=== PATIENT | male | born 1965 | race Caucasian/White ===

== ENCOUNTER 2021-11-09 17:19 | Emergency (ER) | payer OTHER, SELFPAY ==
[2021-11-09 17:27] VITALS: BP 143/106; PULSE 63; RESP 16; TEMP 36.6; O2SAT 99
--- NOTE | 2021-11-09 17:32 | ED.SKABFB ---
HPI - Skin/Abscess/Foreign Bdy General Chief complaint: Skin/Abscess/Foreign Body Stated complaint: rash Time Seen by Provider: 11/09/21 17:32 Source: patient Mode of arrival: ambulatory Limitations: no limitations History of Present Illness HPI narrative: 56-year-old male presents with rash to right upper arm, left lower leg after doing yard work 4 to 5 days ago. Reports he first noticed rash to right upper arm and later to left lower leg. Initially thought that he may have spider bite to left lower leg. States that rash has been itchy. Has been scratching at it. Applying triple antibiotic ointment. Not using any steroid cream. All systems reviewed and negative except as noted above. Related Data Allergies Allergy/AdvReac Type Severity Reaction Status Date / Time No Known Allergies Allergy Verified 11/09/21 17:22 Review of Systems Review of Systems: CONSTITUTIONAL: Denies fever, chills, or sweats. EYES: Denies visual changes, redness, or discharge. ENT: Denies rhinorrhea, congestion, sore throat, or otalgia. CARDIOVASCULAR: Denies chest pain, palpitations, or edema. RESPIRATORY: Denies cough or dyspnea. GASTROINTESTINAL: Denies abdominal pain, nausea, vomiting, or diarrhea. GENITOURINARY: Denies dysuria or hematuria. SKIN: Reports rash and itching. MUSCULOSKELETAL: Denies back pain, joint pain, or myalgia. NEUROLOGIC: Denies headache, numbness, or weakness. PSYCHIATRIC: Denies anxiety or depression. All other systems reviewed are negative, except as documented in HPI. PMFSH Comments At time of signature, agree with nursing past medical, surgical, social and family history. There is no relevant family history pertinent to the presenting complaint. Exam Narrative: GENERAL: This is a well-nourished, well-developed patient, in no apparent distress. HEAD: normocephalic, atraumatic. EYES: PERRL. Sclera clear/white. Vision is grossly intact. EARS: External ears normal NOSE: External nose normal NECK: Neck supple, non-tender without lymphadenopathy, masses or thyromegaly. CARDIOVASCULAR: Regular rate and rhythm without murmurs, gallops, or rubs. RESPIRATORY: Clear to auscultation. Breath sounds equal bilaterally. No wheezes, rales, or rhonchi. SKIN: warm, Dry, intact, good texture and turgor. Erythematous, vesicular rash to right upper arm, left lower leg. Surrounding area to rash of left lower leg is erythematous, warm, swollen concerning for cellulitis. NEURO: awake, alert, and oriented to person, place and time. There were no obvious focal neurologic abnormalities. EXTREMITIES: Normal range of motion to all extremities. Course Course Level of Care: Express Care Visit Vital Signs Vital signs: Vital Signs Temperature 36.6 C 11/09/21 17:27 Pulse Rate 63 11/09/21 17:27 Respiratory Rate 16 11/09/21 17:27 Blood Pressure 143/106 H 11/09/21 17:27 Pulse Oximetry 99 11/09/21 17:27 Oxygen Delivery Room Air 11/09/21 17:27 Temperature 36.6 C 11/09/21 17:27 Pulse Rate 63 11/09/21 17:27 Respiratory Rate 16 11/09/21 17:27 Blood Pressure 143/106 H 11/09/21 17:27 Pulse Oximetry 99 11/09/21 17:27 Oxygen Delivery Room Air 11/09/21 17:27 Reviewed MDM - Skin/Abscess/Foreign Bdy MDM Narrative Medical decision making narrative: Patient is aware of diagnosis, understands and agrees to treatment plan. Anticipatory guidance given. Patient agrees to follow-up as directed and is aware of reasons to seek care at the emergency department. Portions of this record may have been created with voice recognition software Discharge Plan Discharge Clinical Impression: Allergic contact dermatitis due to plant, Cellulitis of left lower leg Patient Disposition: Home, Self-Care Condition: Stable Instructions: Antibiotic Form, Cellulitis (ED), Poison Ember (ED) Additional Instructions: Take medications as prescribed. Take ibuprofen or Tylenol if you are experiencing any pain. Follow
[2021-11-09 17:50] VITALS: BP 115/84
[2021-11-09 17:56] VITALS: BP 115/94
== END 2021-11-09 17:50 | disposition home or self-care (01) ==
PROVIDERS: Emergency Provider Nurse Practitioner Family
DX: L23.7 Allergic contact dermatitis due to plants, except food (principal); L03.116 Cellulitis of left lower limb
CPT/HCPCS: 99213; G0463

== ENCOUNTER 2023-03-21 09:05 | Outpatient (CLI) | payer OTHER, SELFPAY ==
--- NOTE | ~2023-03-21 | CT_ITS ---
CT of the Abdomen and Pelvis: Indication: Microscopic hematuria Technique: 2.5 mm axial scans were obtained through the abdomen and pelvis prior to and following in travenous administration of 130 cc of Omnipaque 350. Dose reduction technique was used on this scan b y utilizing automated exposure control and iterative reconstruction technique. The dose-length produc t (DLP) was 1440.65 mGy-cm. Findings: Scans through the lung bases are unremarkable. The liver, spleen, pancreas, gallbladder, adrenals and kidneys are within normal limits. No evidence of aortic aneurysm. No lymphadenopathy. No bowel obstruction or bowel wall thickening. There is no evidence to suggest acute appendicitis. Images through the pelvis were performed. Urinary bladder unremarkable. Prostate gland is mildly enla rged. Small fat-containing left inguinal hernia present. Impression: No etiology for hematuria identified. Small fat-containing left inguinal hernia. Reviewed, dictated and finalized at [facility]. Impression: No etiology for hematuria identified. Small fat-containing left inguinal hernia.
[2023-03-21 09:27] LABS: Estimated Glomerular Filt Rate > 60
== END 2023-03-21 09:06 ==
LOC: MICIMG 09:06
PROVIDERS: PCP Urology; Visit Provider Urology
DX: R31.29 Other microscopic hematuria (principal); K40.90 Unilateral inguinal hernia, without obstruction or gangrene, not specified as recurrent
CPT/HCPCS: 74178; Q9967

== ENCOUNTER 2023-11-13 14:51 | Outpatient (CLI) | payer OTHER, SELFPAY | END 2023-11-13 14:52 | disposition home or self-care (01) | LOC: ANHSURGERY 14:56 | PROVIDERS: Visit Provider Surgery | DX: Z01.818 Encounter for other preprocedural examination (principal); K40.90 Unilateral inguinal hernia, without obstruction or gangrene, not specified as recurrent | CPT/HCPCS: 36415; 86850; 86900; 86901 ==

== ENCOUNTER 2023-11-22 00:32 | Day surgery (SDC) | payer OTHER, SELFPAY ==
[2023-11-07 08:41] VITALS: BMI 26.5
--- NOTE | 2023-11-07 08:50 | PC.NURSE ---
Report to the Outpatient Waiting Room, entrance under the green pavilion located off [facility], at time _1000_ on date _[id number]_. Planned Procedure Time: _1200_. Time changes happen often and if your time is changed the preop area will call you the afternoon before. - You and your visitor will be asked to self-screen and do not enter if you have any COVID symptoms. - A mask is optional within the hospital at this time. Patients may have clear liquids (water, carbonated beverages, clear teas, apple juice) until 3 hours prior to surgery with a maximum of 20 ounces. - No food from midnight until time of surgery Take the following medications with a SIP of water the morning of surgery: ____None DO NOT STOP ANY OF YOUR OTHER PRESCRIPTION MEDICATIONS PRIOR TO SURGERY ?EXCEPT THE FOLLOWING Medications to discontinue per physician None Date to take last dose Please no make-up, nail bahamian, hairspray, perfume, deodorant, or body powder the day of surgery. No jewelry (including any body piercings) or valuables the day of surgery, leave them at home. Please take a shower or bath the night before, or the morning of, surgery with an antibacterial soap. Wear comfortable, loose fitting clothing. - Jewelry must be removed prior to entering the operating room. Rings and piercings that are not removed may be cut off. - The hospital will not accept responsibility for valuables. - Please leave all valuables, including medications, at home the day of surgery. If you are going home after surgery, a licensed short haul driver must drive you home. - NO public transportation without another adult if you receive anesthesia. - We recommend that an adult stay with you for 24 hours following discharge. - We also recommend that you do not drive, make important decision, drink alcoholic beverages, or take any drugs that were not prescribed by your health care provider for at least 24 hours after your discharge time. Follow any additional instructions given to you from your surgeon. If you or anyone in your household have experienced Covid symptoms in the past week, please notify your surgeon or the nurse liaison at the phone number below for possible testing. Telephone instructions given to _Aravind__and asked if any additional questions and then verbalized understanding. Patient advised to call surgeon office or pre surgery nurse liaison [phone] if any additional questions.
--- NOTE | 2023-11-21 13:17 | PM.SD2 ---
Same Day Admit/Disch: HPI History of Present Illness Chief complaint: Lt Ing Hernia Narrative: Shun Hayes is a 58 year old male who was noted by his urologist last fall to have a possible left inguinal hernia. He had a CT scan which showed a small fat containing left inguinal hernia. The bulge increased and I saw him last March. He had a reducible left inguinal hernia. He was however, not ready to proceed with surgery at that time. He was seen again in September and the left inguinal hernia is slightly larger but still reducible. After discussion, he would like to proceed with robotic laparoscopic repair with mesh. He is taken to surgery at this time for that purpose. [facility] Past Medical History Medical History (Updated 11/22/23 @ 14:45 by Jerry Christiansen MD) Inguinal hernia Surgical History Surgical History (Updated 11/22/23 @ 10:01 by Noah Arroyo MD) History of facial surgery Hx of cystoscopy Family History Family History Other Diabetes mellitus Heart disease Social History Social History Smoking status: Never smoker Alcohol intake: current Drinks per week: 3 Alcohol use details: Socially Substance use type: marijuana Other substance usage details: Once a awhile Living arrangements: with family Spiritual care concerns: No Same Day Admit/Disch: Med Pre-admit Medications Home Medications Medication Instructions Recorded Confirmed Type ketorolac 10 mg tablet 10 mg PO Q6H 4 days #16 tabs 11/22/23 Rx oxycodone-acetaminophen 5 mg-325 0.5 - 1 tablet PO Q6H PRN pain #10 11/22/23 Rx mg tablet tabs tadalafil 5 mg tablet 5 mg PO DAILY 11/22/23 11/22/23 History Review of Systems Review of Systems All systems reviewed & are unremarkable except as noted in HPI and below (HPI) Genitourinary Genitourinary: Reports urinary frequency Exam Const: General: comfortable, no acute distress, alert and awake HENMT: Head: normocephalic and atraumatic Mouth: Yes Normal oral and palatal mucosa present Eyes: Conjunctivae: conjunctivae normal Pupils: Equal, round and reactive pupils present EOM: EOMs intact bilaterally Neck: Neck: normal visual inspection, no lymphadenopathy and nontender Resp: Effort & Inspection: normal respiratory effort Auscultation: clear to auscultation bilaterally Cardio: Rate: regular rate Rhythm: regular rhythm Heart sounds: no gallops, no murmurs and no rubs GI: Inspection: non-distended GI Palp: Yes Soft to palpation, No Tenderness to palpation present (GI), No Hepatomegaly present and No Splenomegaly present : Male General Exam: Yes hernia (Left inguinal bulge, pulses with cough, reducible) Penis: Yes normal penis Scrotum: scrotum normal Testes: Testes normal Skin: Lesions: no lesions Rashes: no rashes Neuro: General: no focal motor deficits and CN's II-XI intact bilaterally Cranial nerves: Yes Equal, round and reactive pupils present, Yes Bilaterally intact EOM present, Yes facial symmetry and Yes Midline tongue present Speech: normal speech Motor exam (neuro): 5/5 motor strength present throughout and Motor abnormalities not present Extrem: General: no clubbing, cyanosis or edema and edema Psych: Affect: normal affect Thought process: Normal thought process present Insight: Good insight present (Psych) DS: Summary Time Spent with Patient Time attestation: Total time spent providing and/or coordinating discharge services: DS: Admitting Diagnosis Discharge Date 11/22/2023 Admitting Diagnosis Reducible left inguinal hernia that is symptomatic. Patient is taken to surgery at this time for robotic laparoscopic repair with mesh. The procedure, risks, benefits, alternatives, and time of recovery was discussed. The usual length of the operation was discussed. All questions were answered. Patient agrees to proceed. Lower uri
[2023-11-22] VITALS (11 sets, daily range): BP systolic 99–147; BP diastolic 57–91; PULSE 53–76; RESP 12–20; TEMP 36.4; O2SAT 94–100
--- NOTE | 2023-11-22 10:00 | P.PNAN_ITS ---
Anes - Initial Pre Proc Eval Procedure: Operation Date: 11/22/23 12:00 Proposed Procedures p Robotic Repair Left Inguinal Hernia with Mesh - Jerry Christiansen MD Date/Time: 11/22/23 10:00 Surgeon: Jerry Christiansen MD Pre Op Diagnosis: Lt Ing Hernia Patient Data Age: 58 Gender: M Height: 1.8 m Weight: 86.4 kg Allergies Allergy/AdvReac Type Severity Reaction Status Date / Time No Known Allergies Allergy Verified 11/07/23 08:40 Home Medications Medication Instructions Recorded Confirmed Type No Home Medications 09/27/23 11/07/23 History Patient hx anesthesia problems: none Family hx anesthesia problems: none Results Review: All pre-operative results and documents have been reviewed as part of the pre- operative evaluation. [facility] Past Medical History Medical History (Updated 11/22/23 @ 10:02 by Noah Arroyo MD) Inguinal hernia Surgical History Surgical History (Updated 11/22/23 @ 10:01 by Noah Arroyo MD) History of facial surgery Hx of cystoscopy Family History Family History Other Diabetes mellitus Heart disease Social History Social History Smoking status: Never smoker Alcohol intake: current Drinks per week: 3 Alcohol use details: Socially Substance use type: marijuana Other substance usage details: Once a awhile Living arrangements: with family Spiritual care concerns: No Anes - Eval Final PreProcedure Day of Procedure 11/22/23 10:00 Patient weight: overweight Heart: regular rate and rhythm Lungs: clear to auscultation Airway: Mallampati scale class II Neurological: alert and oriented Last oral intake: >/= 8 hours ASA classification: II Emergent: no Anesthetic plan: proceed Anesthesia type and monitoring: general ETT and standard monitoring Results Review: All pre-operative results and documents have been reviewed as part of the pre- operative evaluation. Informed Consent: The patient's anesthetic plan and its attendant risks and benefits were discussed with the patient/family/POA. Questions were solicited and answers provided to the satisfaction of the patient/family/POA.
[2023-11-22] MEDS: LACTATED RINGERS 1,000 ML 30 ML IV CONT ×3 (11:00→16:02)
[2023-11-22] MEDS: ACETAMINOPHEN 500 MG TABLET 1000 MG PO (11:38)
[2023-11-22] MEDS: KETOROLAC 15 MG/ML VIAL (*BKC) IV PUSH (11:38)
--- NOTE | 2023-11-22 11:50 | WPDHPUPDATE1 ---
History and Physical Update Update Date/Time: 11/22/23 11:50 History and Physical has been reviewed, including an updated exam of the patient. There are NO changes in the patient's condition. Risks, benefits, and alternatives have been discussed and questions answered. Patient agrees to proceed with procedure.
[2023-11-22] MEDS: ceFAZolin 2 GM/D5W 50 ML 2 GM/50 ML BAG IVPB (12:12)
[2023-11-22] MEDS: BUPIVACAINE/EPINEPHRINE 0.5% 10 ML VIAL 30 ML INFILTRATE (12:44)
--- NOTE | 2023-11-22 14:51 | W.PM.PROC2 ---
Procedure Note - Detailed Date of Procedure 11/22/23 Pre-op Diagnosis Lt Ing Hernia Post-op Diagnosis Same Procedure Performed Robotic laparoscopic repair left inguinal hernia with mesh Surgeon Jerry Christiansen MD Packaging Engineer Ashley PANTOJA Anesthesia General and Local Indications Patient is a 58-year-old man who has had a left inguinal hernia for years. It is gotten bigger and is bothersome. He was seen in the office and found to have a reducible left inguinal hernia. He is taken to surgery now for robotic laparoscopic repair with mesh Findings Patient had a good-sized indirect hernia. There was quite a bit of properitoneal fat in the hernia but no bowel. Description of Procedure Patient was taken to surgery and induced into general anesthesia. The abdomen is prepped and draped. Trocars were placed in usual fashion 1st using a 5 mi mm applied Medical optical trocar. Insufflation was carried out and then 8 mm robotic trocars were placed. We then changed out the 5 mm port for another 8 mm robotic port. Patient was placed in Trendelenburg. The mesh and both the sutures that would be used or placed in the area of the left inguinal hernia. The robot was then brought into position. The camera port was docked and targeted. We then docked the instrument ports and position the instruments near the hernia. There was no evidence of a right inguinal hernia. The surgeon went to the robotic console. A peritoneal flap was created proceeding from lateral to medial over the anterior aspect of the inguinal canal structures. The flap was dissected broadly leaving as little tissue on the flap as possible. Dissection was carried deep to the posterior at aspect of the left rectus muscle. This was followed down to the Franko's ligament. We also dissected medially exposing the medial aspect of the right rectus muscle and the pubis. Cautery was used for hemostasis. I started to dissect the indirect hernia but the monopolar scissors lost the ability to coagulate. It took a fair amount of time to get this situation remedied. The intuitive technical support services tech was called. We ended up attaching the monopolar cautery to an alternative supply stores and this worked well. The dissection was then continued creating more of the flap laterally and then placing traction on the indirect hernia. There was a large amount of fatty tissue in the hernia defect. This was gradually reduced and then divided from the hernia sac and the cord structures. With traction on the hernia sac I was able to see a distinct plane between the sac and the vas deferens and cord vessels. The sac was carefully dissected free of these structures and dissected far posteriorly for adequate mesh placement. I then went back to the medial aspect and dissected farther laterally on Franko's ligament until we came to the sammying machine operator fat plug. I did some further dissection of properitoneal tissue off the medial aspect of the right rectus muscle to create an adequate plane for mesh placement here as well. It appeared the dissection was now adequate and the mesh was then positioned over the inguinal canal structures. 3-0 Vicryl suture was used to secure the mesh in place. The initial suture was placed on the lateral aspect of Franko's ligament. Two other 3-0 Vicryl sutures were placed anteriorly, 1 medial to the inferior epigastric vessels and 1 lateral to the inferior epigastric vessels. The mesh appeared to be in very good position overlapping the pubis and medial right rectus muscle. I then used 3-0 V lock and closed the peritoneal flap in running fashion. The suture needles were than removed from the peritoneal cavity. All looked good with no evidence of bleeding or other problems. We undocked the robot and evacuated CO2 from the abdominal cavity. The trocars were removed and the skin incisions were closed with subcuticular 4-0 Monocryl skin suture. The wounds were dressed with Exofin surgical
== END 2023-11-22 16:51 | disposition home or self-care (01) ==
PROVIDERS: Visit Provider Surgery
PROC: 8E0Y4CZ Robotic Assisted Procedure of Lower Extremity, Percutaneous Endoscopic Approach (ICD-10-PCS; CPT 49650; principal; 2023-11-22 12:00)
DX: K40.90 Unilateral inguinal hernia, without obstruction or gangrene, not specified as recurrent (principal)
CPT/HCPCS: 49650; S2900; 36415; 86850; 86900; 86901; A9270; C1781; J0690; J1100; J1885; J2250; J2405; J2704; J3010; J7030; J7120

== ENCOUNTER 2024-03-06 07:47 | Outpatient (CLI) | payer OTHER, SELFPAY ==
--- NOTE | ~2024-03-06 | MR_ITS ---
EXAMINATION: MR humerus RT wo con DATE: 03/06/2024 08:44 INDICATION: Right humeral pain and strain of the muscle, fascia and tendon of the long head biceps. TECHNIQUE: Magnetic resonance imaging (MRI) of the right humerus was performed without intravenous co ntrast. Sequences included axial, sagittal and coronal T1-weighted FSE and fluid sensitive FSE STIR. COMPARISON: Radiograph dated 02/21/2024 FINDINGS: 18.3 x 8.2 x 6.6 cm ovoid T1 hyperintense and fat saturating intramuscular lipoma within the short he ad of the biceps brachii muscle. This corresponds and size and location to a large lucent mass seen o n the prior radiographs. 1.3 cm peripherally low signal intensity, centrally T1 hyperintense fat satu rating heterotopic ossicle within the caudal aspect of the lipoma likely related to prior fat necrosi s with the rim calcified lesion better appreciated within the lucent lipoma on the prior radiographs. There is minimal muscular edema medially abutting the lipoma. There is an additional 1.8 x 1.4 x 1.3 cm T1 hyperintense lipoma within the right rhomboid major muscle deep to the superior margin of the scapula. The remaining musculature of the right upper arm and visualized right chest and shoulder are otherwise normal. There is normal bone marrow signal throughout. Moderate acromioclavicular osteoart hritis and mild osteoarthritis at the right elbow. Mild increased fluid at the long head biceps tendo n sheath consistent with mild bicipital tenosynovitis. There is suggestion of possible partial split tear of the intra-articular long head biceps tendon however assessment of the tendon sulci and cassidy l cartilage and glenoid labrum are limited on the larger [id number] images relative to a standard shoulder MRI. The visualized portion of the tendons at the elbow appear normal. IMPRESSION: 1. 18.3 x 8.2 x 6.6 cm intramuscular lipoma within the biceps brachii muscle belly and 1.8 x 1.4 x 1. 3 cm intramuscular lipoma within the right rhomboid major muscle. 2. 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 2. Mild tenosynovitis along the long head biceps tendon with possible longitudinal split tear of the intra-articular portion of the tendon which is suboptimally evaluated on the larger [id number] leyla ging. Reviewed, dictated and finalized at location B. IMPRESSION: 1. 18.3 x 8.2 x 6.6 cm intramuscular lipoma within the biceps brachii muscle be lly and 1.8 x 1.4 x 1.3 cm intramuscular lipoma within the right rhomboid major muscle. 2. 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 2. Mild tenosynovitis along the long head biceps tendon with possible longitudi nal split tear of the intra-articular portion of the tendon which is suboptimal ly evaluated on the larger [id number] imaging.
== END 2024-03-06 07:48 | disposition home or self-care (01) ==
LOC: MICIMG 07:50
PROVIDERS: PCP Orthopaedic Surgery; Visit Provider Orthopaedic Surgery
DX: D17.9 Benign lipomatous neoplasm, unspecified (principal); M19.011 Primary osteoarthritis, right shoulder; M19.021 Primary osteoarthritis, right elbow; M65.811 Other synovitis and tenosynovitis, right shoulder; S46.119A Strain of muscle, fascia and tendon of long head of biceps, unspecified arm, initial encounter; X58.XXXA Exposure to other specified factors, initial encounter
CPT/HCPCS: 73218